=== PATIENT | male | born 1985 | race African-American/Black ===

== ENCOUNTER 2016-12-24 11:21 | Inpatient (IN) | payer MEDICAID ==
[~2016-12-24] VITALS: Ht 195.6 cm; Wt 95.3 kg
[~2016-12-24 11:21] MED LIST: DIVA500T35 PO; FLUO-191 PO; RISP3 PO
[2016-12-24 11:48] VITALS: BP 109/70
[2016-12-24] MEDS ORDERED: HALOPERIDOL 5 MG TABLET PO PRN (12:30)
[2016-12-24] MEDS ORDERED: RISP2 PO (13:08)
[2016-12-24] MEDS ORDERED: AMOX250C4 PO (13:09)
[2016-12-24 13:53] VITALS: BP 128/75
[2016-12-24 16:24] VITALS: BP 109/64
[2016-12-24] MEDS: LORazepam 2 MG TABLET PO PRN (17:01)
[2016-12-24] MEDS: AMOXICILLIN TRIHYDRATE 500 MG CAPSULE PO SCH (17:01)
[2016-12-24] MEDS: RisperiDONE 2 MG TABLET PO SCH (20:36)
[2016-12-25 06:30] VITALS: BP 108/69
[2016-12-25 07:59] LABS: EOSINOPHILS % (AUTO) 1.6 % (1.0-6.0); HEMATOCRIT 45.8 % (41-53); HEMOGLOBIN 13.9 g/dL (13.5-17.5); LYMPHOCYTES # (AUTO) 2.1 K/uL (1.0-4.8); LYMPHOCYTES % (AUTO) 33.5 % (22.0-44.0); MEAN CORPUSCULAR HEMOGLOBIN 22.3 pg (26.0-34.0); MEAN CORPUSCULAR HGB CONC 30.4 G/dL (31.0-37.0); MEAN CORPUSCULAR VOLUME 73 fL (80-100); MONOCYTES # (AUTO) 0.6 K/uL (0.1-1.0); MONOCYTES % (AUTO) 9.4 % (2.0-9.0); NEUTROPHILS # (AUTO) 3.4 K/uL (1.8-7.7); NEUTROPHILS % (AUTO) 54.5 % (40.0-70.0); PLATELET COUNT (AUTO) 221 K/uL (150-450); RED BLOOD CELL COUNT(AUTO) 6.26 MIL/uL (4.50-5.90); WHITE BLOOD COUNT (AUTO) 6.3 K/uL (4.5-11.0)
[2016-12-25 08:23] LABS: ALANINE AMINOTRANSFERASE 21 U/L (12-78); ALBUMIN 3.5 g/dL (3.4-5.0); ANION GAP 6 mmol/L (8-16); ASPARTATE AMINOTRANSFERASE 13 U/L (15-37); BILIRUBIN,TOTAL 0.3 mg/dL (0.1-1.0); CALCIUM, TOTAL 8.2 mg/dL (8.8-10.5); CARBON DIOXIDE 30 mmol/L (22-29); CHLORIDE 107 mmol/L (98-107); CREATININE 1.11 mg/dL (0.60-1.30); GLOMERULAR FILTR. RATE CALC > 60 mL/min (>60); POTASSIUM 3.9 mmol/L (3.5-5.1); SODIUM SERUM 143 mmol/L (136-145); TOTAL PROTEIN, SERUM 6.6 g/dL (6.4-8.2); UREA NITROGEN, BLOOD 10 mg/dL (7-18)
[2016-12-25 08:42] VITALS: BP 100/53
[2016-12-25] MEDS: AMOXICILLIN TRIHYDRATE 500 MG CAPSULE PO SCH ×3 (09:27→16:12)
[2016-12-25] MEDS: NICOTINE 7 MG/24 HOUR PATCH TD SCH (09:27)
[2016-12-25 09:55] LABS: APPEARANCE,URINE CLEAR (CLEAR); GLUCOSE, URINE (UA) NEGATIVE (NEGATIVE); KETONES,URINE NEGATIVE (NEGATIVE); LEUKOCYTE ESTERASE ,URINE NEGATIVE (NEGATIVE); OCCULT BLOOD,URINE NEGATIVE (NEGATIVE); PROTEIN,URINE NEGATIVE (NEGATIVE)
[2016-12-25 10:10] LABS: ADD UA MICROSCOPIC NO
[2016-12-25 10:20] LABS: RBC MORPHOLOGY COMMENT ABNORMAL RBC MORPH
[2016-12-25 16:11] VITALS: BP 117/72
[2016-12-25] MEDS: LORazepam 2 MG TABLET PO PRN (16:24)
[2016-12-25] MEDS: ZOLPIDEM TARTRATE 10 MG TABLET PO PRN (20:42)
[2016-12-25] MEDS: RisperiDONE 2 MG TABLET PO SCH (20:42)
[2016-12-25] MEDS ORDERED: ACETAMINOPHEN 325 MG TABLET PO PRN (20:45)
[2016-12-25] MEDS ORDERED: IBUPROFEN 400 MG TABLET PO PRN (20:45)
[2016-12-26 06:35] VITALS: BP 109/65
[2016-12-26 08:29] LABS: HEMOGLOBIN A1C 5.4 % (4.5-6.2)
[2016-12-26 08:32] LABS: CHOL/HDL RATIO 3.4 (4.2-7.3); THYROID STIMULATING HORMONE 1.37 uIU/mL (0.36-3.74)
[2016-12-26 08:44] VITALS: BP 129/63
[2016-12-26] MEDS: NICOTINE 7 MG/24 HOUR PATCH TD SCH (08:49)
[2016-12-26] MEDS: AMOXICILLIN TRIHYDRATE 500 MG CAPSULE PO SCH ×3 (08:49→16:10)
[2016-12-26] MEDS: LORazepam 2 MG TABLET PO PRN (13:52)
[2016-12-26 16:06] VITALS: BP 125/74
[2016-12-26] MEDS: RisperiDONE 2 MG TABLET PO SCH (20:08)
[2016-12-26] MEDS: ZOLPIDEM TARTRATE 10 MG TABLET PO PRN (20:50)
[2016-12-27 05:30] VITALS: BP 119/79
[2016-12-27] MEDS: AMOXICILLIN TRIHYDRATE 500 MG CAPSULE PO SCH ×3 (08:48→16:16)
[2016-12-27] MEDS: NICOTINE 7 MG/24 HOUR PATCH TD SCH (08:48)
[2016-12-27] MEDS: LORazepam 2 MG TABLET PO PRN ×2 (14:07→18:36)
[2016-12-27 16:07] VITALS: BP 114/68
[2016-12-27] MEDS: RisperiDONE 2 MG TABLET PO SCH (20:13)
[2016-12-27] MEDS: ZOLPIDEM TARTRATE 10 MG TABLET PO PRN (20:36)
[2016-12-28 06:43] VITALS: BP 103/65
[2016-12-28] MEDS: LORazepam 2 MG TABLET PO PRN ×2 (08:15→15:59)
[2016-12-28] MEDS: AMOXICILLIN TRIHYDRATE 500 MG CAPSULE PO SCH ×3 (08:15→15:59)
[2016-12-28] MEDS: NICOTINE 7 MG/24 HOUR PATCH TD SCH (08:15)
[2016-12-28 08:41] VITALS: BP 105/62
[2016-12-28 16:11] VITALS: BP 111/72
[2016-12-28] MEDS: RisperiDONE 2 MG TABLET PO SCH (20:42)
[2016-12-28] MEDS: ZOLPIDEM TARTRATE 10 MG TABLET PO PRN (20:42)
[2016-12-29 05:52] VITALS: BP 110/68
[2016-12-29 08:08] VITALS: BP 104/62
[2016-12-29] MEDS: LORazepam 2 MG TABLET PO PRN ×3 (08:52→20:48)
[2016-12-29] MEDS: NICOTINE 7 MG/24 HOUR PATCH TD SCH (08:52)
[2016-12-29] MEDS: AMOXICILLIN TRIHYDRATE 500 MG CAPSULE PO SCH ×3 (08:52→16:18)
[2016-12-29 16:00] VITALS: BP 123/72
[2016-12-29] MEDS: RisperiDONE 2 MG TABLET PO SCH (20:48)
[2016-12-29] MEDS: ZOLPIDEM TARTRATE 10 MG TABLET PO PRN (20:49)
[2016-12-30] MEDS: LORazepam 2 MG TABLET PO PRN (02:44)
[2016-12-30 05:47] VITALS: BP 126/68
[2016-12-30] MEDS: NICOTINE 7 MG/24 HOUR PATCH TD SCH (09:00)
[2016-12-30] MEDS: AMOXICILLIN TRIHYDRATE 500 MG CAPSULE PO SCH (09:33)
== END 2016-12-30 10:05 | disposition home or self-care (01) | DRG 750 ==
LOC: B3A 12:25
PROVIDERS: ADMIT Psychiatry & Neurology Psychiatry; ATTEND Psychiatry & Neurology Psychiatry
DX: F25.9 Schizoaffective disorder, unspecified (principal); I95.9 Hypotension, unspecified; R45.851 Suicidal ideations; F14.10 Cocaine abuse, uncomplicated; F15.10 Other stimulant abuse, uncomplicated; F31.9 Bipolar disorder, unspecified; D64.9 Anemia, unspecified; G47.00 Insomnia, unspecified; F17.210 Nicotine dependence, cigarettes, uncomplicated
CPT/HCPCS: 80307; 83036; 84443

== ENCOUNTER 2017-01-17 19:27 | Inpatient (IN) | payer MEDICAID ==
[~2017-01-17] VITALS: Ht 195.6 cm; Wt 96.6 kg
[~2017-01-17 19:27] MED LIST changes: +AMOX250C4 PO; -DIVA500T35 PO; -FLUO-191 PO; +RISP2 PO; -RISP3 PO
[2017-01-17] MEDS: LORazepam 2 MG TABLET PO PRN (20:27)
[2017-01-17] MEDS: HALOPERIDOL 5 MG TABLET PO PRN (20:27)
[2017-01-17 20:46] VITALS: BP 134/72
[2017-01-17 21:59] VITALS: BP 134/72
[2017-01-17] MEDS: ZOLPIDEM TARTRATE 10 MG TABLET PO PRN (22:26)
[2017-01-18 06:21] VITALS: BP 106/68
[2017-01-18 08:12] LABS: BASOPHILS % (AUTO) 0.4 % (0.0-2.0); EOSINOPHILS % (AUTO) 1.2 % (1.0-6.0); HEMOGLOBIN 13.9 g/dL (13.5-17.5); LYMPHOCYTES # (AUTO) 2.2 K/uL (1.0-4.8); LYMPHOCYTES % (AUTO) 17.2 % (22.0-44.0); MEAN CORPUSCULAR HGB CONC 30.3 G/dL (31.0-37.0); MEAN CORPUSCULAR VOLUME 73 fL (80-100); MONOCYTES # (AUTO) 1.2 K/uL (0.1-1.0); MONOCYTES % (AUTO) 9.7 % (2.0-9.0); NEUTROPHILS # (AUTO) 9.1 K/uL (1.8-7.7); NEUTROPHILS % (AUTO) 71.5 % (40.0-70.0); PLATELET COUNT (AUTO) 232 K/uL (150-450); RED BLOOD CELL COUNT(AUTO) 6.32 MIL/uL (4.50-5.90); RED CELL DISTRIBUTION WIDTH 15.1 % (11.5-14.5); WHITE BLOOD COUNT (AUTO) 12.7 K/uL (4.5-11.0)
[2017-01-18 08:29] VITALS: BP 113/64
[2017-01-18 08:32] LABS: HEMOGLOBIN A1C 5.9 % (4.5-6.2)
[2017-01-18 08:39] LABS: ALANINE AMINOTRANSFERASE 51 U/L (12-78); ALBUMIN 4.2 g/dL (3.4-5.0); ANION GAP 10 mmol/L (8-16); ASPARTATE AMINOTRANSFERASE 129 U/L (15-37); BILIRUBIN,TOTAL 1.5 mg/dL (0.1-1.0); CALCIUM, TOTAL 8.2 mg/dL (8.8-10.5); CARBON DIOXIDE 28 mmol/L (22-29); CHLORIDE 98 mmol/L (98-107); CHOL/HDL RATIO 2.7 (4.2-7.3); CREATININE 1.19 mg/dL (0.60-1.30); GLOMERULAR FILTR. RATE CALC > 60 mL/min (>60); POTASSIUM 3.2 mmol/L (3.5-5.1); SODIUM SERUM 136 mmol/L (136-145); TOTAL PROTEIN, SERUM 7.5 g/dL (6.4-8.2); UREA NITROGEN, BLOOD 14 mg/dL (7-18)
[2017-01-18] MEDS ORDERED: POTASSIUM CHLORIDE 20 MEQ ER TABLET PO ONE (09:30)
[2017-01-18] MEDS: NICOTINE 21 MG/24 HOUR PATCH TD SCH (10:02)
[2017-01-18] MEDS: HALOPERIDOL 5 MG TABLET PO PRN (10:02)
[2017-01-18] MEDS: LORazepam 2 MG TABLET PO PRN ×2 (10:02→17:23)
[2017-01-18 16:12] VITALS: BP 127/70
[2017-01-18] MEDS: RisperiDONE 2 MG TABLET PO SCH (20:44)
[2017-01-19 01:11] VITALS: BP 123/80
[2017-01-19 08:36] VITALS: BP 117/62
[2017-01-19] MEDS: LORazepam 2 MG TABLET PO PRN ×3 (08:47→19:24)
[2017-01-19] MEDS: HALOPERIDOL 5 MG TABLET PO PRN ×2 (08:47→18:58)
[2017-01-19] MEDS: NICOTINE 21 MG/24 HOUR PATCH TD SCH (08:47)
[2017-01-19 16:00] VITALS: BP 125/83
[2017-01-19] MEDS: RisperiDONE 2 MG TABLET PO SCH (20:36)
[2017-01-20 06:44] VITALS: BP 115/68
[2017-01-20 08:13] VITALS: BP 116/61
[2017-01-20] MEDS: NICOTINE 21 MG/24 HOUR PATCH TD SCH (08:54)
[2017-01-20] MEDS: LORazepam 2 MG TABLET PO PRN ×2 (13:15→20:23)
[2017-01-20 16:00] VITALS: BP 126/73
[2017-01-20] MEDS: RisperiDONE 2 MG TABLET PO SCH (20:23)
[2017-01-21 06:07] VITALS: BP 111/64
[2017-01-21 08:13] VITALS: BP 110/61
[2017-01-21] MEDS: NICOTINE 21 MG/24 HOUR PATCH TD SCH (10:03)
[2017-01-21] MEDS: LORazepam 2 MG TABLET PO PRN ×2 (13:49→20:14)
[2017-01-21 16:00] VITALS: BP 116/67
[2017-01-21] MEDS: HALOPERIDOL 5 MG TABLET PO PRN (17:12)
[2017-01-21] MEDS: RisperiDONE 2 MG TABLET PO SCH (20:14)
[2017-01-22 05:51] VITALS: BP 100/60
[2017-01-22 08:34] VITALS: BP 104/64
[2017-01-22] MEDS: SERTRALINE HCL 50 MG TABLET PO SCH (09:52)
[2017-01-22] MEDS: NICOTINE 21 MG/24 HOUR PATCH TD SCH (09:53)
[2017-01-22] MEDS: LORazepam 2 MG TABLET PO PRN ×2 (13:32→18:25)
[2017-01-22] MEDS: HALOPERIDOL 5 MG TABLET PO PRN (15:55)
[2017-01-22 16:00] VITALS: BP 115/86
[2017-01-22] MEDS: RisperiDONE 2 MG TABLET PO SCH (20:27)
[2017-01-22] MEDS: ZOLPIDEM TARTRATE 10 MG TABLET PO PRN (20:28)
[2017-01-23 06:42] VITALS: BP 118/71
[2017-01-23] MEDS: HALOPERIDOL 5 MG TABLET PO PRN ×2 (08:52→16:05)
[2017-01-23] MEDS: SERTRALINE HCL 50 MG TABLET PO SCH (08:52)
[2017-01-23] MEDS: NICOTINE 21 MG/24 HOUR PATCH TD SCH (08:52)
[2017-01-23] MEDS: LORazepam 2 MG TABLET PO PRN ×2 (08:52→16:05)
[2017-01-23 11:16] VITALS: BP 100/44
[2017-01-23 16:10] VITALS: BP 122/69
[2017-01-23] MEDS: RisperiDONE 2 MG TABLET PO SCH (20:48)
[2017-01-23] MEDS: ZOLPIDEM TARTRATE 10 MG TABLET PO PRN (21:06)
[2017-01-24 06:10] VITALS: BP 106/63
[2017-01-24 08:11] VITALS: BP 108/67
[2017-01-24] MEDS: HALOPERIDOL 5 MG TABLET PO PRN ×2 (09:21→16:55)
[2017-01-24] MEDS: SERTRALINE HCL 50 MG TABLET PO SCH (09:21)
[2017-01-24] MEDS: LORazepam 2 MG TABLET PO PRN ×3 (09:21→20:41)
[2017-01-24] MEDS: NICOTINE 21 MG/24 HOUR PATCH TD SCH (09:21)
[2017-01-24 16:00] VITALS: BP 112/66
[2017-01-24] MEDS: RisperiDONE 2 MG TABLET PO SCH (20:41)
[2017-01-24] MEDS: ZOLPIDEM TARTRATE 10 MG TABLET PO PRN (22:09)
[2017-01-25 00:30] VITALS: BP 117/68
[2017-01-25 08:13] VITALS: BP 132/68
[2017-01-25] MEDS: LORazepam 2 MG TABLET PO PRN ×3 (08:44→20:20)
[2017-01-25] MEDS: HALOPERIDOL 5 MG TABLET PO PRN ×2 (08:44→15:44)
[2017-01-25] MEDS: SERTRALINE HCL 50 MG TABLET PO SCH (08:44)
[2017-01-25] MEDS: NICOTINE 21 MG/24 HOUR PATCH TD SCH (08:58)
[2017-01-25 16:00] VITALS: BP 128/75
[2017-01-25] MEDS: RisperiDONE 2 MG TABLET PO SCH (20:20)
[2017-01-25] MEDS: ZOLPIDEM TARTRATE 10 MG TABLET PO PRN (20:20)
[2017-01-26 06:37] VITALS: BP 111/61
[2017-01-26 08:37] VITALS: BP 102/61
[2017-01-26] MEDS: SERTRALINE HCL 50 MG TABLET PO SCH (09:30)
[2017-01-26] MEDS: LORazepam 2 MG TABLET PO PRN ×3 (09:30→20:23)
[2017-01-26] MEDS: NICOTINE 21 MG/24 HOUR PATCH TD SCH (09:31)
[2017-01-26 16:00] VITALS: BP 111/69
[2017-01-26] MEDS: HALOPERIDOL 5 MG TABLET PO PRN (16:03)
[2017-01-26] MEDS ORDERED: SERT50TA12 PO (16:14)
[2017-01-26] MEDS: ZOLPIDEM TARTRATE 10 MG TABLET PO PRN (20:23)
[2017-01-26] MEDS: RisperiDONE 2 MG TABLET PO SCH (20:23)
[2017-01-27 04:23] VITALS: BP 121/74
== END 2017-01-27 07:20 | disposition home or self-care (01) | DRG 750 ==
LOC: B3A 19:52 → EDSTATUS 20:07
PROVIDERS: ADMIT Psychiatry & Neurology Psychiatry; ATTEND Psychiatry & Neurology Psychiatry
DX: F25.1 Schizoaffective disorder, depressive type (principal); R45.851 Suicidal ideations; D64.9 Anemia, unspecified; R00.0 Tachycardia, unspecified; Z72.0 Tobacco use
CPT/HCPCS: 83036; 84132; 84439; 84443; 87081

== ENCOUNTER 2017-01-27 14:05 | Emergency (ER) | payer MEDICAID ==
[~2017-01-27] VITALS: Ht 195.6 cm; Wt 95.0 kg
[~2017-01-27 14:05] MED LIST changes: -AMOX250C4 PO; +SERT50TA12 PO
[2017-01-27 14:47] LABS: ANION GAP 10 mmol/L (8-16); CALCIUM, TOTAL 8.6 mg/dL (8.8-10.5); CARBON DIOXIDE 28 mmol/L (22-29); CHLORIDE 101 mmol/L (98-107); GLOMERULAR FILTR. RATE CALC > 60 mL/min (>60); POTASSIUM 3.4 mmol/L (3.5-5.1); SODIUM SERUM 139 mmol/L (136-145); UREA NITROGEN, BLOOD 11 mg/dL (7-18)
[2017-01-27 14:48] LABS: EOSINOPHILS # (AUTO) 0.01 K/uL (0.00-0.70); EOSINOPHILS % (AUTO) 0.06 % (1.0-6.0); HEMATOCRIT 48.1 % (41-53); LYMPHOCYTES # (AUTO) 1.2 K/uL (1.0-4.8); LYMPHOCYTES % (AUTO) 9.1 % (22.0-44.0); MEAN CORPUSCULAR HEMOGLOBIN 22.8 pg (26.0-34.0); MEAN CORPUSCULAR HGB CONC 31.2 G/dL (31.0-37.0); MEAN CORPUSCULAR VOLUME 73 fL (80-100); MONOCYTES # (AUTO) 0.9 K/uL (0.1-1.0); MONOCYTES % (AUTO) 6.3 % (2.0-9.0); NEUTROPHILS # (AUTO) 11.5 K/uL (1.8-7.7); NEUTROPHILS % (AUTO) 84.6 % (40.0-70.0); PLATELET COUNT (AUTO) 295 K/uL (150-450); RED BLOOD CELL COUNT(AUTO) 6.59 MIL/uL (4.50-5.90); RED CELL DISTRIBUTION WIDTH 15.1 % (11.5-14.5); WHITE BLOOD COUNT (AUTO) 13.6 K/uL (4.5-11.0)
[2017-01-27 14:52] LABS: ALANINE AMINOTRANSFERASE 29 U/L (12-78); ALBUMIN 4.7 g/dL (3.4-5.0); ASPARTATE AMINOTRANSFERASE 18 U/L (15-37); BILIRUBIN,TOTAL 0.5 mg/dL (0.1-1.0); TOTAL PROTEIN, SERUM 8.2 g/dL (6.4-8.2)
[2017-01-27 15:47] LABS: RBC MORPHOLOGY COMMENT ABNORMAL RBC MORPH
[2017-01-27] MEDS ORDERED: LORazepam 2 MG TABLET PO ONE (16:30)
[2017-01-27 16:49] VITALS: BP 128/75
== END 2017-01-27 17:02 | disposition home or self-care (01) ==
LOC: EMS 14:07 → EEVIPCON 14:07 → EMS 17:02
DX: F41.9 Anxiety disorder, unspecified (principal); F20.9 Schizophrenia, unspecified; F31.9 Bipolar disorder, unspecified; F17.210 Nicotine dependence, cigarettes, uncomplicated; F12.90 Cannabis use, unspecified, uncomplicated; F19.90 Other psychoactive substance use, unspecified, uncomplicated
CPT/HCPCS: 36415; 80053; 80307; 85025; 99284; G0480

== ENCOUNTER 2017-01-27 22:02 | Inpatient (IN) | payer MEDICAID ==
[~2017-01-27] VITALS: Ht 195.6 cm; Wt 96.4 kg
[2017-01-28] VITALS: BP 133/77
[2017-01-28] MEDS: LORazepam 2 MG TABLET PO PRN ×3 (00:24→16:20)
[2017-01-28] MEDS: HALOPERIDOL 5 MG TABLET PO PRN ×2 (03:03→16:20)
[2017-01-28 08:11] VITALS: BP 127/74
[2017-01-28] MEDS: SERTRALINE HCL 50 MG TABLET PO SCH (09:37)
[2017-01-28] MEDS ORDERED: NICOTINE 14 MG/24 HOUR PATCH TD SCH (10:00)
[2017-01-28] MEDS: NICOTINE 21 MG/24 HOUR PATCH TD SCH (11:02)
[2017-01-28] MEDS ORDERED: SERTRALINE HCL 50 MG TABLET PO SCH (11:45)
[2017-01-28 16:00] VITALS: BP 136/73
[2017-01-28] MEDS: ZOLPIDEM TARTRATE 10 MG TABLET PO PRN (20:25)
[2017-01-28] MEDS: RisperiDONE 2 MG TABLET PO SCH (20:25)
[2017-01-28] MEDS ORDERED: RisperiDONE 2 MG TABLET PO SCH (21:00)
[2017-01-29 08:29] LABS: BASOPHILS % (AUTO) 0.9 % (0.0-2.0); EOSINOPHILS % (AUTO) 1.6 % (1.0-6.0); HEMOGLOBIN 14.3 g/dL (13.5-17.5); LYMPHOCYTES # (AUTO) 1.9 K/uL (1.0-4.8); LYMPHOCYTES % (AUTO) 31.1 % (22.0-44.0); MEAN CORPUSCULAR HEMOGLOBIN 22.9 pg (26.0-34.0); MEAN CORPUSCULAR HGB CONC 31.8 G/dL (31.0-37.0); MEAN CORPUSCULAR VOLUME 72 fL (80-100); MONOCYTES # (AUTO) 0.8 K/uL (0.1-1.0); MONOCYTES % (AUTO) 13.7 % (2.0-9.0); NEUTROPHILS # (AUTO) 3.2 K/uL (1.8-7.7); NEUTROPHILS % (AUTO) 52.7 % (40.0-70.0); PLATELET COUNT (AUTO) 253 K/uL (150-450); RED BLOOD CELL COUNT(AUTO) 6.25 MIL/uL (4.50-5.90)
[2017-01-29 08:33] VITALS: BP 109/65
[2017-01-29] MEDS: HALOPERIDOL 5 MG TABLET PO PRN ×2 (08:43→16:18)
[2017-01-29] MEDS: SERTRALINE HCL 50 MG TABLET PO SCH (08:43)
[2017-01-29] MEDS: NICOTINE 21 MG/24 HOUR PATCH TD SCH (08:43)
[2017-01-29] MEDS: LORazepam 2 MG TABLET PO PRN ×2 (08:43→16:19)
[2017-01-29 08:53] LABS: ALANINE AMINOTRANSFERASE 23 U/L (12-78); ALBUMIN 3.9 g/dL (3.4-5.0); ANION GAP 7 mmol/L (8-16); ASPARTATE AMINOTRANSFERASE 15 U/L (15-37); BILIRUBIN,TOTAL 0.5 mg/dL (0.1-1.0); CALCIUM, TOTAL 8.5 mg/dL (8.8-10.5); CARBON DIOXIDE 28 mmol/L (22-29); CHLORIDE 102 mmol/L (98-107); CHOL/HDL RATIO 2.4 (4.2-7.3); CREATININE 1.14 mg/dL (0.60-1.30); GLOMERULAR FILTR. RATE CALC > 60 mL/min (>60); POTASSIUM 3.8 mmol/L (3.5-5.1); SODIUM SERUM 137 mmol/L (136-145); THYROID STIMULATING HORMONE 0.79 uIU/mL (0.36-3.74); TOTAL PROTEIN, SERUM 6.7 g/dL (6.4-8.2); UREA NITROGEN, BLOOD 8 mg/dL (7-18)
[2017-01-29 16:00] VITALS: BP 110/67
[2017-01-29] MEDS: RisperiDONE 2 MG TABLET PO SCH (20:38)
[2017-01-29] MEDS: ZOLPIDEM TARTRATE 10 MG TABLET PO PRN (21:04)
[2017-01-30 08:05] VITALS: BP 108/60
[2017-01-30 08:07] LABS: APPEARANCE,URINE CLEAR (CLEAR); GLUCOSE, URINE (UA) NEGATIVE (NEGATIVE); KETONES,URINE NEGATIVE (NEGATIVE); LEUKOCYTE ESTERASE ,URINE NEGATIVE (NEGATIVE); OCCULT BLOOD,URINE NEGATIVE (NEGATIVE); PROTEIN,URINE NEGATIVE (NEGATIVE)
[2017-01-30 08:08] LABS: ADD UA MICROSCOPIC NO
[2017-01-30] MEDS: NICOTINE 21 MG/24 HOUR PATCH TD SCH (08:52)
[2017-01-30] MEDS: SERTRALINE HCL 50 MG TABLET PO SCH (08:52)
[2017-01-30] MEDS: LORazepam 2 MG TABLET PO PRN ×2 (10:57→18:49)
[2017-01-30 16:03] VITALS: BP 102/77
[2017-01-30] MEDS ORDERED: IBUPROFEN 400 MG TABLET PO PRN (16:45)
[2017-01-30] MEDS: ACETAMINOPHEN 325 MG TABLET PO PRN (17:01)
[2017-01-30] MEDS: ZOLPIDEM TARTRATE 10 MG TABLET PO PRN (20:15)
[2017-01-30] MEDS: RisperiDONE 2 MG TABLET PO SCH (20:15)
[2017-01-31 05:53] VITALS: BP 104/61
[2017-01-31 08:43] VITALS: BP 112/75
[2017-01-31] MEDS: NICOTINE 21 MG/24 HOUR PATCH TD SCH (09:31)
[2017-01-31] MEDS: LORazepam 2 MG TABLET PO PRN ×2 (09:31→16:12)
[2017-01-31] MEDS: SERTRALINE HCL 50 MG TABLET PO SCH (09:32)
[2017-01-31 16:13] VITALS: BP 125/70
[2017-01-31] MEDS: ZOLPIDEM TARTRATE 10 MG TABLET PO PRN (20:10)
[2017-01-31] MEDS: RisperiDONE 2 MG TABLET PO SCH (20:10)
[2017-02-01 06:19] VITALS: BP 105/69
[2017-02-01 08:51] VITALS: BP 113/65
[2017-02-01] MEDS: SERTRALINE HCL 50 MG TABLET PO SCH (09:31)
[2017-02-01] MEDS: LORazepam 2 MG TABLET PO PRN ×2 (09:32→16:03)
[2017-02-01] MEDS: NICOTINE 21 MG/24 HOUR PATCH TD SCH (09:33)
[2017-02-01 16:33] VITALS: BP 117/70
[2017-02-01] MEDS: RisperiDONE 2 MG TABLET PO SCH (20:41)
[2017-02-01] MEDS: ZOLPIDEM TARTRATE 10 MG TABLET PO PRN (22:54)
[2017-02-02 05:34] VITALS: BP 107/60
[2017-02-02 08:43] VITALS: BP 98/62
[2017-02-02] MEDS: NICOTINE 21 MG/24 HOUR PATCH TD SCH (08:56)
[2017-02-02] MEDS: SERTRALINE HCL 50 MG TABLET PO SCH (08:57)
[2017-02-02] MEDS: LORazepam 2 MG TABLET PO PRN ×2 (09:41→13:43)
[2017-02-02 16:00] VITALS: BP 112/67
[2017-02-02] MEDS: RisperiDONE 2 MG TABLET PO SCH (21:07)
[2017-02-02] MEDS: ZOLPIDEM TARTRATE 10 MG TABLET PO PRN (21:07)
[2017-02-03 06:25] VITALS: BP 117/67
[2017-02-03 09:35] VITALS: BP 107/45
[2017-02-03] MEDS: NICOTINE 21 MG/24 HOUR PATCH TD SCH (09:38)
[2017-02-03] MEDS: SERTRALINE HCL 50 MG TABLET PO SCH (09:38)
[2017-02-03] MEDS: LORazepam 2 MG TABLET PO PRN (10:11)
[2017-02-03] MEDS: ACETAMINOPHEN 325 MG TABLET PO PRN (12:32)
[2017-02-03 13:17] VITALS: BP 121/63
== END 2017-02-03 14:23 | disposition home or self-care (01) | DRG 750 ==
LOC: B3A 22:34 → EDSTATUS 22:57 → B3A 01-30 16:10
PROVIDERS: ADMIT Psychiatry & Neurology Psychiatry; ATTEND Psychiatry & Neurology Psychiatry
DX: F25.9 Schizoaffective disorder, unspecified (principal); Z59.0 Homelessness; R45.851 Suicidal ideations
CPT/HCPCS: 80307; 84439; 84443; 87081

== ENCOUNTER 2017-02-03 14:02 | Emergency (ER) | payer MEDICAID ==
[~2017-02-03] VITALS: Ht 198.1 cm; Wt 96.4 kg
[2017-02-03 18:23] VITALS: BP 114/77
== END 2017-02-03 19:14 | disposition home or self-care (01) ==
LOC: EMS 14:06
DX: S00.83XA Contusion of other part of head, initial encounter (principal); F17.210 Nicotine dependence, cigarettes, uncomplicated; F12.90 Cannabis use, unspecified, uncomplicated; F15.90 Other stimulant use, unspecified, uncomplicated; Y04.0XXA Assault by unarmed brawl or fight, initial encounter; Y93.89 Activity, other specified; Y92.89 Other specified places as the place of occurrence of the external cause; Y99.8 Other external cause status
CPT/HCPCS: 70150; 99284

== ENCOUNTER 2017-08-16 22:23 | Inpatient (IN) | payer MEDICAID ==
[~2017-08-16] VITALS: Ht 193 cm; Wt 85.3 kg
[2017-08-16 23:29] VITALS: BP 150/89
[2017-08-17] MEDS ORDERED: INFLUENZA VIRUS VACCINE QVS 2017-18 (3YR+)/PF 60 MCG/0.5 ML SYRINGE IM ONE (00:15)
[2017-08-17 03:35] VITALS: BP 140/81
[2017-08-17] MEDS: ZOLPIDEM TARTRATE 10 MG TABLET PO PRN ×2 (03:51→20:22)
[2017-08-17] MEDS: LORazepam 2 MG TABLET PO PRN ×2 (03:51→17:08)
[2017-08-17] MEDS ORDERED: ACETAMINOPHEN 325 MG TABLET PO PRN (07:30)
[2017-08-17 08:00] VITALS: BP 124/68
[2017-08-17 08:14] LABS: BASOPHILS % (AUTO) 0.2 % (0.0-2.0); EOSINOPHILS % (AUTO) 3.1 % (1.0-6.0); HEMATOCRIT 41.2 % (41-53); HEMOGLOBIN 13.2 g/dL (13.5-17.5); LYMPHOCYTES # (AUTO) 1.7 K/uL (1.0-4.8); LYMPHOCYTES % (AUTO) 16.9 % (22.0-44.0); MEAN CORPUSCULAR HEMOGLOBIN 23.4 pg (26.0-34.0); MEAN CORPUSCULAR HGB CONC 31.9 G/dL (31.0-37.0); MEAN CORPUSCULAR VOLUME 73 fL (80-100); MONOCYTES # (AUTO) 1.3 K/uL (0.1-1.0); MONOCYTES % (AUTO) 13.5 % (2.0-9.0); NEUTROPHILS # (AUTO) 6.6 K/uL (1.8-7.7); NEUTROPHILS % (AUTO) 66.3 % (40.0-70.0); PLATELET COUNT (AUTO) 263 K/uL (150-450); RED BLOOD CELL COUNT(AUTO) 5.62 MIL/uL (4.50-5.90); RED CELL DISTRIBUTION WIDTH 14.2 % (11.5-14.5)
[2017-08-17 08:29] LABS: ALANINE AMINOTRANSFERASE 90 U/L (12-78); ALBUMIN 3.1 g/dL (3.4-5.0); ALKALINE PHOSPHATASE 69 U/L (46-116); ANION GAP 2 mmol/L (8-16); ASPARTATE AMINOTRANSFERASE 64 U/L (15-37); BILIRUBIN,TOTAL 0.3 mg/dL (0.1-1.0); CALCIUM, TOTAL 8.2 mg/dL (8.8-10.5); CARBON DIOXIDE 32 mmol/L (22-29); CHLORIDE 100 mmol/L (98-107); CREATININE 0.93 mg/dL (0.60-1.30); GLOMERULAR FILTR. RATE CALC > 60 mL/min (>60); GLUCOSE,RANDOM 88 mg/dL (70-110); POTASSIUM 3.8 mmol/L (3.5-5.1); SODIUM SERUM 134 mmol/L (136-145); TOTAL PROTEIN, SERUM 6.6 g/dL (6.4-8.2); UREA NITROGEN, BLOOD 12 mg/dL (7-18)
[2017-08-17] MEDS: BACITRACIN 28.4 GM OINTMENT TP SCH ×2 (09:12→16:37)
[2017-08-17] MEDS: SERTRALINE HCL 50 MG TABLET PO SCH (11:09)
[2017-08-17 16:36] VITALS: BP 111/65
[2017-08-17] MEDS: HALOPERIDOL 5 MG TABLET PO PRN (17:08)
[2017-08-17] MEDS: IBUPROFEN 400 MG TABLET PO PRN (17:08)
[2017-08-17] MEDS: RisperiDONE 2 MG TABLET PO SCH (20:22)
[2017-08-18 03:42] VITALS: BP 124/81
[2017-08-18] MEDS: SERTRALINE HCL 50 MG TABLET PO SCH (08:07)
[2017-08-18] MEDS: BACITRACIN 28.4 GM OINTMENT TP SCH ×2 (08:09→16:33)
[2017-08-18 08:43] VITALS: BP 106/64
[2017-08-18] MEDS: LORazepam 2 MG TABLET PO PRN (16:33)
[2017-08-18] MEDS: HALOPERIDOL 5 MG TABLET PO PRN (16:33)
[2017-08-18 17:12] VITALS: BP 117/82
[2017-08-18] MEDS: RisperiDONE 2 MG TABLET PO SCH (20:40)
[2017-08-18] MEDS: ZOLPIDEM TARTRATE 10 MG TABLET PO PRN (20:40)
[2017-08-19 06:32] VITALS: BP 113/65
[2017-08-19 08:05] VITALS: BP 115/61
[2017-08-19] MEDS: LORazepam 2 MG TABLET PO PRN ×2 (08:40→16:59)
[2017-08-19] MEDS: HALOPERIDOL 5 MG TABLET PO PRN ×2 (08:40→16:59)
[2017-08-19] MEDS: SERTRALINE HCL 50 MG TABLET PO SCH (08:40)
[2017-08-19] MEDS: BACITRACIN 28.4 GM OINTMENT TP SCH ×2 (08:41→16:59)
[2017-08-19 16:05] VITALS: BP 105/64
[2017-08-19] MEDS: RisperiDONE 2 MG TABLET PO SCH (20:30)
[2017-08-20 06:11] VITALS: BP 109/60
[2017-08-20 08:37] VITALS: BP 117/65
[2017-08-20] MEDS: SERTRALINE HCL 50 MG TABLET PO SCH (08:45)
[2017-08-20] MEDS: IBUPROFEN 400 MG TABLET PO PRN (08:45)
[2017-08-20] MEDS: HALOPERIDOL 5 MG TABLET PO PRN (08:45)
[2017-08-20] MEDS: LORazepam 2 MG TABLET PO PRN ×2 (08:45→16:22)
[2017-08-20] MEDS: BACITRACIN 28.4 GM OINTMENT TP SCH ×2 (08:46→16:22)
[2017-08-20] MEDS ORDERED: PENICILLIN G BENZATHINE LA 2,400,000 UNITS/4 ML SYRINGE IM ONE (09:00)
[2017-08-20 16:15] VITALS: BP 110/60
[2017-08-20] MEDS: ZOLPIDEM TARTRATE 10 MG TABLET PO PRN (20:31)
[2017-08-20] MEDS: RisperiDONE 2 MG TABLET PO SCH (20:31)
[2017-08-21 05:22] VITALS: BP 103/66
[2017-08-21 08:26] VITALS: BP 115/61
[2017-08-21] MEDS: SERTRALINE HCL 50 MG TABLET PO SCH (09:07)
[2017-08-21] MEDS: LORazepam 2 MG TABLET PO PRN ×2 (09:07→17:05)
[2017-08-21] MEDS: HALOPERIDOL 5 MG TABLET PO PRN (09:07)
[2017-08-21] MEDS: IBUPROFEN 400 MG TABLET PO PRN (09:08)
[2017-08-21] MEDS: BACITRACIN 28.4 GM OINTMENT TP SCH ×2 (09:08→17:05)
[2017-08-21 16:01] VITALS: BP 104/64
[2017-08-21] MEDS: RisperiDONE 2 MG TABLET PO SCH (20:24)
[2017-08-21] MEDS: ZOLPIDEM TARTRATE 10 MG TABLET PO PRN (20:24)
[2017-08-22 06:42] VITALS: BP 115/61
[2017-08-22 08:08] VITALS: BP 113/62
[2017-08-22] MEDS: SERTRALINE HCL 50 MG TABLET PO SCH (09:23)
[2017-08-22] MEDS: LORazepam 2 MG TABLET PO PRN ×2 (09:23→17:11)
[2017-08-22] MEDS: BACITRACIN 28.4 GM OINTMENT TP SCH ×2 (09:24→17:11)
[2017-08-22] MEDS: HALOPERIDOL 5 MG TABLET PO PRN ×2 (09:24→17:11)
[2017-08-22 16:02] VITALS: BP 128/76
[2017-08-22] MEDS: RisperiDONE 2 MG TABLET PO SCH (20:39)
[2017-08-22] MEDS: ZOLPIDEM TARTRATE 10 MG TABLET PO PRN (20:39)
[2017-08-23 04:54] VITALS: BP 118/69
[2017-08-23 08:50] VITALS: BP 110/59
[2017-08-23] MEDS: NICOTINE 14 MG/24 HOUR PATCH TD SCH (08:58)
[2017-08-23] MEDS: BACITRACIN 28.4 GM OINTMENT TP SCH ×2 (08:58→16:18)
[2017-08-23] MEDS: SERTRALINE HCL 50 MG TABLET PO SCH (08:58)
[2017-08-23 16:09] VITALS: BP 147/74
[2017-08-23] MEDS: HALOPERIDOL 5 MG TABLET PO PRN (16:18)
[2017-08-23] MEDS: LORazepam 2 MG TABLET PO PRN (16:18)
[2017-08-23] MEDS: ZOLPIDEM TARTRATE 10 MG TABLET PO PRN (20:19)
[2017-08-23] MEDS: RisperiDONE 2 MG TABLET PO SCH (20:19)
[2017-08-24 06:52] VITALS: BP 135/72
[2017-08-24 08:14] VITALS: BP 112/64
[2017-08-24] MEDS: SERTRALINE HCL 50 MG TABLET PO SCH (08:26)
[2017-08-24] MEDS: NICOTINE 14 MG/24 HOUR PATCH TD SCH (08:27)
[2017-08-24] MEDS: BACITRACIN 28.4 GM OINTMENT TP SCH ×2 (08:27→16:45)
[2017-08-24 16:04] VITALS: BP 128/76
[2017-08-24] MEDS: HALOPERIDOL 5 MG TABLET PO PRN (16:14)
[2017-08-24] MEDS: LORazepam 2 MG TABLET PO PRN (16:14)
[2017-08-24] MEDS: ZOLPIDEM TARTRATE 10 MG TABLET PO PRN (20:21)
[2017-08-24] MEDS: RisperiDONE 2 MG TABLET PO SCH (20:21)
[2017-08-25 06:25] VITALS: BP 105/60
[2017-08-25 08:00] VITALS: BP 108/68
[2017-08-25] MEDS: SERTRALINE HCL 50 MG TABLET PO SCH (09:12)
[2017-08-25] MEDS: BACITRACIN 28.4 GM OINTMENT TP SCH ×2 (09:13→16:09)
[2017-08-25] MEDS: NICOTINE 14 MG/24 HOUR PATCH TD SCH (09:13)
[2017-08-25] MEDS: LORazepam 2 MG TABLET PO PRN ×3 (09:33→22:35)
[2017-08-25 16:25] VITALS: BP 125/75
[2017-08-25] MEDS: HALOPERIDOL 5 MG TABLET PO PRN (17:54)
[2017-08-25] MEDS: IBUPROFEN 400 MG TABLET PO PRN (18:55)
[2017-08-25] MEDS: RisperiDONE 2 MG TABLET PO SCH (20:03)
[2017-08-25] MEDS: ZOLPIDEM TARTRATE 10 MG TABLET PO PRN (22:35)
[2017-08-26 05:34] VITALS: BP 114/63
[2017-08-26 08:03] VITALS: BP 112/62
[2017-08-26] MEDS: BACITRACIN 28.4 GM OINTMENT TP SCH ×2 (09:17→16:21)
[2017-08-26] MEDS: NICOTINE 14 MG/24 HOUR PATCH TD SCH (09:18)
[2017-08-26] MEDS: SERTRALINE HCL 50 MG TABLET PO SCH (09:18)
[2017-08-26] MEDS: LORazepam 2 MG TABLET PO PRN ×2 (09:21→16:21)
[2017-08-26 16:00] VITALS: BP 137/71
[2017-08-26] MEDS: HALOPERIDOL 5 MG TABLET PO PRN (16:21)
[2017-08-26] MEDS: ZOLPIDEM TARTRATE 10 MG TABLET PO PRN (20:41)
[2017-08-26] MEDS: RisperiDONE 2 MG TABLET PO SCH (20:41)
[2017-08-27 05:29] VITALS: BP 129/78
[2017-08-27 08:05] VITALS: BP 123/62
[2017-08-27] MEDS: NICOTINE 14 MG/24 HOUR PATCH TD SCH (09:10)
[2017-08-27] MEDS: SERTRALINE HCL 50 MG TABLET PO SCH (09:10)
[2017-08-27] MEDS: BACITRACIN 28.4 GM OINTMENT TP SCH ×2 (09:11→16:55)
[2017-08-27] MEDS: LORazepam 2 MG TABLET PO PRN ×3 (12:51→20:55)
[2017-08-27 16:09] VITALS: BP 128/68
[2017-08-27] MEDS: HALOPERIDOL 5 MG TABLET PO PRN (16:55)
[2017-08-27] MEDS: RisperiDONE 2 MG TABLET PO SCH (20:55)
[2017-08-27] MEDS: ZOLPIDEM TARTRATE 10 MG TABLET PO PRN (20:55)
[2017-08-28 06:50] VITALS: BP 122/64
[2017-08-28 08:13] VITALS: BP 116/67
[2017-08-28] MEDS: NICOTINE 14 MG/24 HOUR PATCH TD SCH (08:49)
[2017-08-28] MEDS: SERTRALINE HCL 50 MG TABLET PO SCH (08:49)
[2017-08-28] MEDS: BACITRACIN 28.4 GM OINTMENT TP SCH ×2 (08:50→16:50)
[2017-08-28] MEDS: LORazepam 2 MG TABLET PO PRN ×2 (12:38→16:50)
[2017-08-28] MEDS: HALOPERIDOL 5 MG TABLET PO PRN ×2 (13:51→18:06)
[2017-08-28 16:06] VITALS: BP 131/67
[2017-08-28] MEDS: ZOLPIDEM TARTRATE 10 MG TABLET PO PRN (20:22)
[2017-08-28] MEDS: RisperiDONE 2 MG TABLET PO SCH (20:22)
[2017-08-29 06:15] VITALS: BP 100/59
[2017-08-29 08:27] VITALS: BP 107/59
[2017-08-29] MEDS: LORazepam 2 MG TABLET PO PRN ×3 (08:37→19:38)
[2017-08-29] MEDS: HALOPERIDOL 5 MG TABLET PO PRN (08:37)
[2017-08-29] MEDS: SERTRALINE HCL 50 MG TABLET PO SCH (08:37)
[2017-08-29] MEDS: BACITRACIN 28.4 GM OINTMENT TP SCH ×2 (09:03→16:06)
[2017-08-29] MEDS: NICOTINE 14 MG/24 HOUR PATCH TD SCH (09:04)
[2017-08-29 16:01] VITALS: BP 121/74
[2017-08-29 19:06] VITALS: BP 127/85
[2017-08-29] MEDS: IBUPROFEN 400 MG TABLET PO PRN (19:06)
[2017-08-29] MEDS: RisperiDONE 2 MG TABLET PO SCH (20:04)
[2017-08-29] MEDS: ZOLPIDEM TARTRATE 10 MG TABLET PO PRN (20:36)
[2017-08-30 06:34] VITALS: BP 123/81
[2017-08-30 08:00] VITALS: BP 122/66
[2017-08-30] MEDS: SERTRALINE HCL 50 MG TABLET PO SCH (09:14)
[2017-08-30] MEDS: BACITRACIN 28.4 GM OINTMENT TP SCH ×2 (09:15→16:32)
[2017-08-30] MEDS: LORazepam 2 MG TABLET PO PRN ×2 (09:15→16:33)
[2017-08-30] MEDS: NICOTINE 14 MG/24 HOUR PATCH TD SCH (09:15)
[2017-08-30] MEDS: HALOPERIDOL 5 MG TABLET PO PRN ×2 (09:15→16:33)
[2017-08-30 16:03] VITALS: BP 118/64
[2017-08-30] MEDS: IBUPROFEN 400 MG TABLET PO PRN (16:34)
[2017-08-30] MEDS: ZOLPIDEM TARTRATE 10 MG TABLET PO PRN (20:13)
[2017-08-30] MEDS: RisperiDONE 2 MG TABLET PO SCH (20:13)
[2017-08-31 05:30] VITALS: BP 116/73
[2017-08-31 08:02] VITALS: BP 122/76
[2017-08-31] MEDS: SERTRALINE HCL 50 MG TABLET PO SCH (09:03)
[2017-08-31] MEDS: BACITRACIN 28.4 GM OINTMENT TP SCH ×2 (09:03→16:13)
[2017-08-31] MEDS: HALOPERIDOL 5 MG TABLET PO PRN ×2 (09:03→16:13)
[2017-08-31] MEDS: LORazepam 2 MG TABLET PO PRN ×2 (09:03→16:13)
[2017-08-31] MEDS: NICOTINE 14 MG/24 HOUR PATCH TD SCH (09:03)
[2017-08-31 16:23] VITALS: BP 133/83
[2017-08-31] MEDS: ZOLPIDEM TARTRATE 10 MG TABLET PO PRN (20:21)
[2017-08-31] MEDS: RisperiDONE 2 MG TABLET PO SCH (20:21)
[2017-09-01 06:19] VITALS: BP 102/64
[2017-09-01 08:10] VITALS: BP 112/66
[2017-09-01] MEDS: NICOTINE 14 MG/24 HOUR PATCH TD SCH (08:10)
[2017-09-01] MEDS: SERTRALINE HCL 50 MG TABLET PO SCH (08:10)
[2017-09-01] MEDS: BACITRACIN 28.4 GM OINTMENT TP SCH (08:10)
[2017-09-01] MEDS: LORazepam 2 MG TABLET PO PRN (08:10)
== END 2017-09-01 13:20 | disposition home or self-care (01) | DRG 750 ==
LOC: B2S 23:55 → B3A 08-17 02:37
PROVIDERS: ADMIT Psychiatry & Neurology Psychiatry; ATTEND Psychiatry & Neurology Psychiatry
DX: F25.9 Schizoaffective disorder, unspecified (principal); G40.909 Epilepsy, unspecified, not intractable, without status epilepticus; R45.851 Suicidal ideations; F11.10 Opioid abuse, uncomplicated; D64.9 Anemia, unspecified; F15.10 Other stimulant abuse, uncomplicated; Z59.0 Homelessness; Z79.899 Other long term (current) drug therapy
CPT/HCPCS: 86592; 86593; 86780; 99285; J0561

== ENCOUNTER 2017-08-17 00:17 | Emergency (ER) | payer MEDICAID ==
[~2017-08-17] VITALS: Ht 195.6 cm; Wt 96.4 kg
[2017-08-17] MEDS ORDERED: BACITRACIN 0.9 GM PACKET OINTMENT TP ONE (01:30)
[2017-08-17 01:42] LABS: EOSINOPHILS # (AUTO) 0.27 K/uL (0.00-0.70); EOSINOPHILS % (AUTO) 2.35 % (1.0-6.0); HEMOGLOBIN 13.2 g/dL (13.5-17.5); LYMPHOCYTES # (AUTO) 1.1 K/uL (1.0-4.8); LYMPHOCYTES % (AUTO) 9.8 % (22.0-44.0); MEAN CORPUSCULAR HGB CONC 31.4 G/dL (31.0-37.0); MEAN CORPUSCULAR VOLUME 73 fL (80-100); MONOCYTES # (AUTO) 1.3 K/uL (0.1-1.0); MONOCYTES % (AUTO) 11.3 % (2.0-9.0); NEUTROPHILS # (AUTO) 8.8 K/uL (1.8-7.7); NEUTROPHILS % (AUTO) 76.6 % (40.0-70.0); PLATELET COUNT (AUTO) 254 K/uL (150-450); RED BLOOD CELL COUNT(AUTO) 5.73 MIL/uL (4.50-5.90); RED CELL DISTRIBUTION WIDTH 14.6 % (11.5-14.5); WHITE BLOOD COUNT (AUTO) 11.5 K/uL (4.5-11.0)
[2017-08-17 01:52] LABS: ANION GAP -1 mmol/L (8-16); CALCIUM, TOTAL 8.5 mg/dL (8.8-10.5); CARBON DIOXIDE 35 mmol/L (22-29); CHLORIDE 100 mmol/L (98-107); CREATININE 0.99 mg/dL (0.60-1.30); GLOMERULAR FILTR. RATE CALC > 60 mL/min (>60); SODIUM SERUM 134 mmol/L (136-145); UREA NITROGEN, BLOOD 14 mg/dL (7-18)
[2017-08-17 01:57] LABS: ALANINE AMINOTRANSFERASE 101 U/L (12-78); ALBUMIN 3.4 g/dL (3.4-5.0); ASPARTATE AMINOTRANSFERASE 77 U/L (15-37); BILIRUBIN,TOTAL 0.4 mg/dL (0.1-1.0)
[2017-08-17 02:06] LABS: RBC MORPHOLOGY COMMENT ABNORMAL RBC MORPH
[2017-08-17 02:11] VITALS: BP 131/75
== END 2017-08-17 03:03 | disposition home or self-care (01) ==
LOC: EMS 00:19
DX: S90.424A Blister (nonthermal), right lesser toe(s), initial encounter (principal); F25.9 Schizoaffective disorder, unspecified; R79.89 Other specified abnormal findings of blood chemistry; E72.51 Non-ketotic hyperglycinemia; F31.9 Bipolar disorder, unspecified; F17.210 Nicotine dependence, cigarettes, uncomplicated; F12.90 Cannabis use, unspecified, uncomplicated; F19.90 Other psychoactive substance use, unspecified, uncomplicated; Z02.89 Encounter for other administrative examinations; Z59.0 Homelessness; X58.XXXA Exposure to other specified factors, initial encounter; Y93.89 Activity, other specified; Y92.89 Other specified places as the place of occurrence of the external cause; Y99.8 Other external cause status
CPT/HCPCS: 36415; 80053; 85025; 99284; G0480